=== PATIENT | male | born 1975 | race Two or more races ===

== ENCOUNTER 2022-03-30 08:21 | Outpatient (CLI) | payer OTHER ==
[~2022-03-30 08:21] MED LIST: TRAMADOL HCL-AP1 TAB PO
== END 2022-03-30 09:07 | disposition home or self-care (01) ==
LOC: LAB 08:21
PROVIDERS: ATTEND Obstetrics & Gynecology
DX: Z20.818 Contact with and (suspected) exposure to other bacterial communicable diseases (principal); Z20.828 Contact with and (suspected) exposure to other viral communicable diseases